=== PATIENT | male | born 1990 | race Hispanic/Latino ===

== ENCOUNTER 2024-06-05 06:10 | Emergency (ER) | payer SELFPAY ==
[~2024-06-05] VITALS: Ht 172.7 cm; Wt 79.0 kg
[2024-06-05 06:22] VITALS: BP 121/85
[2024-06-05] MEDS ORDERED: KETOROLAC TROMETHAMINE 30 MG/ML SDV IV ONE (06:45)
[2024-06-05] MEDS ORDERED: BUTALBITAL-APAP-CAFFEINE 50-325-40 TAB PO ONE (06:45)
[2024-06-05] MEDS ORDERED: METOCLOPRAMIDE HCL 10 MG/TAB PO ONE (06:45)
[2024-06-05] MEDS ORDERED: DEXAMETHASONE 2 MG/TAB TAB PO ONE (06:45)
[2024-06-05 07:08] LABS: BASO% 0.1 % (0-3); EOS% 2.6 % (0-8); HEMATOCRIT 45.5 % (39.0-50.0); HEMOGLOBIN 15.1 g/dl (14.0-18.0); IMMATURE GRANULOCYTES 0.1 % (0.0-5.0); LYMPH% 26.1 % (15-41); MEAN CELL VOLUME 91.2 fL CALC (80.0-100.0); MEAN CORPUSCULAR HGB 30.3 pG CALC (26.0-32.0); MEAN CORPUSCULAR HGB CONC 33.2 g/dL CAL (32.0-36.0); MONO% 5.4 % (2-13); NEUT# 4.99 thou/uL (1.82-7.42); NEUT% 65.7 % (42-76); RED BLOOD COUNT 4.99 mill/uL (4.70-6.10)
[2024-06-05 07:19] VITALS: BP 127/85
[2024-06-05 07:20] LABS: ALBUMIN 4.7 g/dL (3.2-5.0); BILIRUBIN, TOTAL 0.7 mg/dL (0.2-1.3); POTASSIUM 4.7 mmol/l (3.5-5.1); TOTAL PROTEIN 7.5 g/dL (6.3-8.2)
[2024-06-05 07:30] VITALS: BP 121/83
[2024-06-05 08:00] VITALS: BP 107/69
[2024-06-05] MEDS ORDERED: FLEXERIL5 M1 PO (08:12)
[2024-06-05] MEDS ORDERED: MOTRIN400 MG/TAB PO (08:12)
[2024-06-05 08:17] VITALS: BP 107/69
== END 2024-06-05 08:30 | disposition home or self-care (01) | DRG 103 ==
LOC: ED 06:10
PROVIDERS: Internal Medicine
DX: R51.9 Headache, unspecified (principal); E78.00 Pure hypercholesterolemia, unspecified

== ENCOUNTER 2024-06-20 18:26 | Emergency (ER) | payer SELFPAY ==
[~2024-06-20] VITALS: Ht 172.7 cm; Wt 86.1 kg
[~2024-06-20 18:26] MED LIST: FLEXERIL5 M1 PO; MOTRIN400 MG/TAB PO
[2024-06-20 18:31] VITALS: BP 120/86
[2024-06-20] MEDS ORDERED: SUMAtriptan SUCCINATE 6 MG/0.5 ML SDV SC ONE (18:40)
[2024-06-20 18:45] VITALS: BP 114/78
[2024-06-20] MEDS ORDERED: SUMATRIPTAN25 MG PO (18:48)
[2024-06-20 19:01] VITALS: BP 119/27
[2024-06-20 19:04] VITALS: BP 128/63
[2024-06-20 19:15] VITALS: BP 114/79; BP 128/63
== END 2024-06-20 19:21 | disposition home or self-care (01) | DRG 103 ==
LOC: ED 18:26
DX: R51.9 Headache, unspecified (principal)

== ENCOUNTER 2024-06-23 02:10 | Emergency (ER) | payer SELFPAY ==
[2024-06-23] VITALS (7 sets, daily range): BP systolic 113–133; BP diastolic 70–90
[~2024-06-23] VITALS: Ht 172.7 cm; Wt 86.0 kg
[~2024-06-23 02:10] MED LIST changes: +SUMATRIPTAN25 MG PO
[2024-06-23] MEDS ORDERED: KETOROLAC TROMETHAMINE 30 MG/ML SDV IV ONE (02:35)
[2024-06-23] MEDS ORDERED: ACETAMINOPHEN 500 MG TAB PO ONE (02:35)
[2024-06-23] MEDS ORDERED: traMADol HCL 50 MG/TAB PO ONE (02:35)
[2024-06-23] MEDS ORDERED: DEXAMETHASONE SOD. PHOSPHATE 10 MG/ML VIAL IV ONE (02:35)
[2024-06-23] MEDS ORDERED: SODIUM CHLORIDE 0.9% 1,000 ML IV ONE (02:35)
[2024-06-23] MEDS ORDERED: CYCLOBENZAPRINE10 MG PO ×2 (02:37→04:49)
[2024-06-23] MEDS ORDERED: ELAVIL25 M1 PO (02:37)
[2024-06-23] MEDS ORDERED: MOTRIN800 MG PO ×2 (02:37→04:49)
== END 2024-06-23 05:00 | disposition home or self-care (01) | DRG 103 ==
LOC: ED 02:10
DX: R51.9 Headache, unspecified (principal)